=== PATIENT | male | born 2000 | race Caucasian/White ===

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

== ENCOUNTER 2021-06-07 15:08 | Emergency (ER) | payer OTHER ==
[~2021-06-07] VITALS: Ht 170.2 cm; Wt 65.8 kg
[2021-06-07 15:27] VITALS: BP 109/69
[2021-06-07] MEDS ORDERED: ALUMINUM HYD/MAG/SIMETHICONE 30 ML UDC PO ONE (17:05)
--- NOTE | 2021-06-07 19:45 | NUR ---
PT CALLED IN LOBBY AND OUTSIDE WITH NO ANSWER.
--- NOTE | 2021-06-07 19:56 | NUR ---
PT CALLED IN LOBBY AND OUTSIDE WITH NO ANSWER.
--- NOTE | 2021-06-07 20:00 | NUR ---
PT CALLED BY DON PANIAGUA WITH NO ANSWER. PATIENT LEFT WITHOUT BEING SEEN BY DR. PANIAGUA. NO FURTHER CARE PROVIDED FOR PATIENT.
[2021-06-07] MEDS ORDERED: SUCRALFATE 1 GM TAB PO SCH (21:00)
== END 2021-06-07 19:45 | disposition left against medical advice (07) ==
LOC: MED 15:08
DX: R10.9 Unspecified abdominal pain (principal); R19.7 Diarrhea, unspecified; Z53.21 Procedure and treatment not carried out due to patient leaving prior to being seen by health care provider

== ENCOUNTER 2022-03-03 09:36 | Emergency (ER) | payer OTHER ==
[~2022-03-03] VITALS: Ht 170.2 cm; Wt 71.2 kg
[2022-03-03 09:39] VITALS: BP 136/70
[2022-03-03] MEDS ORDERED: ACETAMINOPHEN EXTRA STRENGTH 500 MG TAB PO ONE (09:45)
--- NOTE | 2022-03-03 09:45 | NUR ---
PT AMBULATED TO BED 08.
--- NOTE | 2022-03-03 09:51 | NUR ---
21/M WALKED IN C/O BODYACHE ACCOMPANIED BY DIARRHEA ONSET 2 DAYS. DENIES SOB OR CHEST PAIN. DENIES COVID VACCINATION. FEBRILE AT TRIAGE. AAOX4, AMBULATORY.
[2022-03-03 09:52] VITALS: BP 132/66
[2022-03-03] MEDS ORDERED: IBUP-2213 PO (10:47)
--- NOTE | 2022-03-03 10:50 | NUR ---
Patient discharged with v/s stable. Written and verbal after care instructions given and explained. Patient verbalized understanding. Ambulatory with steady gait. All questions addressed prior to discharge. Advised to follow up with PMD.
== END 2022-03-03 10:50 | disposition home or self-care (01) ==
LOC: MED 09:36
DX: R50.9 Fever, unspecified (principal); M79.10 Myalgia, unspecified site
CPT/HCPCS: 99282

== ENCOUNTER 2023-09-01 12:31 | Emergency (ER) | payer OTHER ==
[~2023-09-01] VITALS: Ht 165.1 cm; Wt 71.7 kg
[~2023-09-01 12:31] MED LIST: IBUP-2213 PO
[2023-09-01 12:36] VITALS: BP 123/81; PULSE 85; RESP 18; TEMP 97.9; O2SAT 98
[2023-09-01 16:20] LABS: CALCIUM 8.6 mg/dL (8.5-10.1); CARBON DIOXIDE 28.3 mmol/L (21-32); CREATININE 0.9 mg/dL (0.6-1.3); POTASSIUM 4.3 mmol/L (3.5-5.1)
[2023-09-01 16:22] LABS: BASOPHILS # (AUTO) 0.1 K/uL (0.00-0.22); BASOPHILS % (AUTO) 0.7 % (0.0-2.0); EOSINOPHILS # (AUTO) 0.3 K/uL (0-0.4); EOSINOPHILS % (AUTO) 4.6 % (0.0-4.0); HEMATOCRIT 42.9 % (36-52); HEMOGLOBIN 14.9 g/dL (12.0-18.0); LYMPHOCYTES % (AUTO) 39.5 % (20.5-51.1); MEAN CORPUSCULAR HEMOGLOBIN 32 pg (27-31); MEAN CORPUSCULAR HGB CONC 35 g/dL (33-37); MEAN CORPUSCULAR VOLUME 90.7 fL (80-94); MONOCYTES # (AUTO) 0.6 K/uL (0.8-1.0); MONOCYTES % (AUTO) 8.4 % (1.7-9.3); NEUTROPHILS # (AUTO) 3.5 K/uL (1.8-7.7); NEUTROPHILS % (AUTO) 46.8 % (42.2-75.2); PLATELET COUNT (AUTO) 381 K/uL (140-450); RED BLOOD CELL COUNT(AUTO) 4.73 MIL/uL (4.20-6.10); RED CELL DISTRIBUTION WIDTH 13.3 % (11.6-13.7); WHITE BLOOD COUNT (AUTO) 7.5 K/uL (4.8-10.8)
[2023-09-01] MEDS ORDERED: IBUP-2213 PO (16:37)
[2023-09-01 17:15] VITALS: BP 115/71; PULSE 82; RESP 18; TEMP 97.9; O2SAT 99
== END 2023-09-01 17:15 | disposition home or self-care (01) ==
LOC: MED 12:31
DX: S93.691A Other sprain of right foot, initial encounter (principal); J06.9 Acute upper respiratory infection, unspecified; Z79.899 Other long term (current) drug therapy; X58.XXXA Exposure to other specified factors, initial encounter; Y93.89 Activity, other specified; Y92.89 Other specified places as the place of occurrence of the external cause; Y99.8 Other external cause status
CPT/HCPCS: 36415; 71046; 73630; 80048; 85025; 99284